=== PATIENT | male | born 1950 | race Hispanic/Latino ===

== ENCOUNTER 2019-04-19 17:30 | Emergency (ER) | payer SELFPAY ==
[2019-04-19 18:49] VITALS: BP 102/60
--- NOTE | 2019-04-19 18:51 | Event Note ---
ED Screening Note Date of service: 04/19/19 Time: 18:47 ED Screening Note: 68 y o male presents to be evaluated for hypotention pt stated he felt a little dizzy earlier today but no symptoms now. currently taking nifedipine and lisinopril PMH:renal dz, DM This initial assessment/diagnostic orders/clinical plan/treatment(s) is/are subject to change based on patients health status, clinical progression and re- assessment by fellow clinical providers in the ED. Further treatment and workup at subsequent clinical providers discretion. Patient/guardian urged not to elope from the ED as their condition may be serious if not clinically assessed and managed. Initial orders include: in triage 102/60 received 1 L in EMS labs eval
[2019-04-19 19:52] LABS: Basophils # (Auto) 0.1 K/mm3 (0.0-0.1); Basophils % (Auto) 0.8 % (0.0-1.8); Eosinophils # (Auto) 0.1 K/mm3 (0.0-0.4); Eosinophils % (Auto) 1.2 % (0.0-4.3); Hematocrit 46.1 % (35.5-45.6); Hemoglobin 15.8 gm/dl (11.8-15.2); Lymphocytes # (Auto) 3.2 K/mm3 (1.2-5.4); Mean Corpuscular HGB Conc 34 % (32-34); Mean Corpuscular Volume 98 fl (84-94); Monocytes # (Auto) 0.8 K/mm3 (0.0-0.8); Monocytes % (Auto) 7.4 % (0.0-7.3); Platelet Count 210 K/mm3 (140-440); Red Blood Count 4.71 M/mm3 (3.65-5.03); Red Cell Distribution Width 13.6 % (13.2-15.2)
[2019-04-19 20:17] LABS: Albumin 4.1 g/dL (3.9-5); Calcium 9.2 mg/dL (8.4-10.2)
== END 2019-04-19 23:00 | disposition left against medical advice (07) ==
LOC: ED 17:30
DX: R42 Dizziness and giddiness (principal); Z53.21 Procedure and treatment not carried out due to patient leaving prior to being seen by health care provider
CPT/HCPCS: 36415; 80053; 85025

== ENCOUNTER 2020-01-04 05:31 | Emergency (ER) | payer MEDICARE ==
[2020-01-04 06:19] LABS: Basophils # (Auto) 0.1 K/mm3 (0.0-0.1); Basophils % (Auto) 0.8 % (0.0-1.8); Eosinophils # (Auto) 0.2 K/mm3 (0.0-0.4); Eosinophils % (Auto) 1.3 % (0.0-4.3); Hemoglobin 16.6 gm/dl (11.8-15.2); Lymphocytes # (Auto) 1.8 K/mm3 (1.2-5.4); Lymphocytes % (Auto) 15.3 % (13.4-35.0); Mean Corpuscular HGB Conc 35 % (32-34); Mean Corpuscular Volume 97 fl (84-94); Monocytes # (Auto) 0.9 K/mm3 (0.0-0.8); Monocytes % (Auto) 7.3 % (0.0-7.3); Platelet Count 197 K/mm3 (140-440); Red Blood Count 4.93 M/mm3 (3.65-5.03); Red Cell Distribution Width 13.8 % (13.2-15.2)
[2020-01-04 06:31] LABS: Bilirubin,Urine NEG (Negative); Blood,Urine LG (Negative); Color,Urine Straw (Yellow); Urobilinogen,Urine < 2.0 mg/dL (<2.0)
[2020-01-04 06:42] LABS: Alanine Aminotransferase 8 units/L (7-56); Albumin 3.7 g/dL (3.9-5); BUN/Creatinine Ratio 12; Blood Urea Nitrogen 14 mg/dL (9-20); Calcium 9.6 mg/dL (8.4-10.2); Hemolysis Index 8
[2020-01-04] MEDS ORDERED: ONDANSETRON 4 MG/2 ML INJ IV ONE (08:19)
[2020-01-04] MEDS ORDERED: MORPHINE 4 MG/1 ML INJ IV ONE (08:19)
[2020-01-04] MEDS ORDERED: SODIUM CHLORIDE 0.9% 1000 ML 1,000 ML IV ONE (08:19)
--- NOTE | 2020-01-04 08:46 | Emergency Department Report ---
ED Abdominal Pain HPI - General Chief Complaint: Abdominal Pain Stated Complaint: LOWER ABD PAIN Time Seen by Provider: 01/04/20 07:53 Source: patient, family Mode of arrival: Wheelchair Limitations: No Limitations - History of Present Illness Initial Comments: Patient is a 69-year-old male presents emergency room with complaints of right lower quadrant abd pain and right flank pain that began at 5 AM this morning. He describes the pain as a sharp pain. He denies any nausea, vomiting, diarrhea, fever, dysuria, dark urine, odor to the urine. He states he is having normal bowel movements. He is able to tolerate p.o. intake. Has a past medical history of CKD, hypertension, nephrolithiasis, hernia. He denies any past abdominal surgical history. - Related Data Previous Rx's Medication Instructions Recorded Last Taken Type Acetaminophen [Tylenol] 650 mg PO Q8HR PRN #14 capsule 01/04/20 Unknown Rx Tamsulosin [Flomax] 0.4 mg PO QDAY #10 cap 01/04/20 Unknown Rx traMADoL [Ultram 50 MG tab] 50 mg PO Q6HR PRN #7 tablet 01/04/20 Unknown Rx Allergies Allergy/AdvReac Type Severity Reaction Status Date / Time No Known Allergies Allergy Unverified 04/19/19 18:46 ED Review of Systems ROS: Stated complaint: LOWER ABD PAIN Other details as noted in HPI Comment: All other systems reviewed and negative ED Past Medical Hx - Past Medical History Hx Hypertension: Yes Hx Diabetes: Yes Hx Renal Disease: Yes (STAGE II) Additional medical history: Kidney disease - Surgical History Past Surgical History?: No - Social History Smoking Status: Current Every Day Smoker Substance Use Type: None - Medications Home Medications: Home Medications Medication Instructions Recorded Confirmed Last Taken Type Acetaminophen [Tylenol] 650 mg PO Q8HR PRN #14 capsule 01/04/20 Unknown Rx Tamsulosin [Flomax] 0.4 mg PO QDAY #10 cap 01/04/20 Unknown Rx traMADoL [Ultram 50 MG tab] 50 mg PO Q6HR PRN #7 tablet 01/04/20 Unknown Rx ED Physical Exam - General Limitations: No Limitations General appearance: alert, in no apparent distress - Head Head exam: Present: atraumatic, normocephalic - Eye Eye exam: Present: normal appearance - ENT ENT exam: Present: mucous membranes moist - Respiratory Respiratory exam: Present: normal lung sounds bilaterally. Absent: respiratory distress, wheezes, rales, rhonchi, stridor, chest wall tenderness, accessory muscle use, decreased breath sounds, prolonged expiratory - Cardiovascular Cardiovascular Exam: Present: regular rate, normal rhythm, normal heart sounds. Absent: systolic murmur, diastolic murmur, rubs, gallop - GI/Abdominal GI/Abdominal exam: Present: soft, tenderness (RLQ), normal bowel sounds. Absent: distended, guarding, rebound, rigid - Back Exam Back exam: Absent: CVA tenderness (R), CVA tenderness (L) - Neurological Exam Neurological exam: Present: alert, oriented X3 - Psychiatric Psychiatric exam: Present: normal affect, normal mood - Skin Skin exam: Present: warm, dry, intact ED Course Vital Signs 01/04/20 01/04/20 01/04/20 05:33 07:46 09:04 Temperature 97.6 F Pulse Rate 83 63 Respiratory 18 18 16 Rate Blood Pressure 185/102 Blood Pressure 169/87 [Right] O2 Sat by Pulse 97 98 Oximetry ED Medical Decision Making - Lab Data Result diagrams: 01/04/20 05:38 01/04/20 05:38 Lab Results 01/04/20 01/04/20 01/04/20 Range/Units 05:38 05:38 Unknown WBC 12.0 H (4.5-11.0) K/mm3 RBC 4.93 (3.65-5.03) M/mm3 Hgb 16.6 H (11.8-15.2) gm/dl Hct 48.0 H (35.5-45.6) % MCV 97 H (84-94) fl MCH 34 H (28-32) pg MCHC 35 H (32-34) % RDW 13.8 (13.2-15.2) % Plt Count 197 (140-440) K/mm3 Lymph % (Auto) 15.3 (13.4-35.0) % Gilchrist % (Auto) 7.3 (0.0-7.3) % Eos % (Auto) 1.3 (0.0-4.3) % Baso % (Auto) 0.8 (0.0-1.8) % Lymph # (Auto) 1.8 (1.2-5.4) K/mm3 Gilchrist # (Auto) 0.9 H (0.0-0.8) K/mm3 Eos # (Auto) 0.2 (0.0-0.4) K/mm3 Baso # (Auto) 0.1 (0.0-0.1) K/mm3 Seg Neutrophils % 75.3 H (40.0-70.0) % Seg Neutrophils # 9.0 H (1.8-7.7) K/mm3 Sodium 135 L (137-145) mmol/L Potassium 3.9 (3.6-5.0) mmol/L Chloride 100.0 (98-107) mmol/L Carbon Dioxide 22 (22-30) mmol/L Anion Gap 17 mmol/L BUN 14 (9-20) mg/dL Creatinine 1.2 (0.8-1.3) mg/dL Estimated GFR > 60 ml/min BUN/Creatinine Ratio 12 % Glucose 215 H (75-100) mg/dL Calcium 9.6 (8.4-10.2) mg/dL Total Bilirubin 0.30 (0.1-1.2) mg/dL AST 12 (5-40) units/L ALT 8 (7-56) units/L Alkaline Phosphatase 149 H (35-129) units/L Total Protein 7.2 (6.3-8.2) g/dL Albumin 3.7 L (3.9-5) g/dL Albumin/Globulin Ratio 1.1 % Urine Color Straw (Yellow) Urine Turbidity Clear (Clear) Urine pH 7.0 (5.0-7.0) Ur Specific Hanska 1.012 (1.003-1.030) Urine Protein 100 mg/dl (Negative) mg/dL Urine Glucose (UA) 150 (Negative) mg/dL Urine Ketones Neg (Negative) mg/dL Urine Blood Lg (Negative) Urine Nitrite Neg (Negative) Urine Bilirubin Neg (Negative) Urine Urobilinogen < 2.0 (<2.0) mg/dL Ur Leukocyte Esterase Neg (Negative) Urine WBC (Auto) 5.0 (0.0-6.0) /HPF Urine RBC (Auto) 98.0 (0.0-6.0) /HPF U Epithel Cells (Auto) < 1.0 (0-13.0) /HPF Vital Signs 10/08/20 10/08/20 10/08/20 05:33 07:46 09:04 Temperature 97.6 F Pulse Rate 83 63 Respiratory 18 18 16 Rate Blood Pressure 185/102 Blood Pressure 169/87 [Right] O2 Sat by Pulse 97 98 Oximetry - Radiology Data Radiology results: report reviewed CT OF THE ABDOMEN AND PELVIS WITH INTRAVENOUS CONTRAST INDICATION / CLINICAL INFORMATION: Right lower quadrant and right flank pain. TECHNIQUE: The patient received 100 cc Omnipaque [address] scans at this location are performed using CT dose reduction for ALARA by means of automated exposure control. COMPARISON: 05/29/2011. FINDINGS: ABDOMEN: There is mild right pelvocaliectasis and ureterectasis. There is moderate perinephric soft tissue stranding, more prominent inferiorly. There are 3 nonobstructive left renal calculi, the largest of which measures approximately 5 mm in the lower pole. There are several small simple left renal cysts. The liver, spleen, gallbladder, bile ducts, pancreas, adrenal glands and bowel demonstrate no significant abnormality. There are marked atherosclerotic calcifications involving the abdominal aorta without aneurysm. No adenopathy is seen. There is mild bibasilar dependent atelectasis. There is moderate centrilobular emphysema. PELVIS: The right ureter is mildly dilated to the level of the mid SI joint. There is a 3 mm rounded calcification at that site on axial image #449 of axial series #3. The prostate gland is moderately enlarged. The distal left ureter and urinary bladder are normal. There is a small fat-containing left inguinal hernia without complication. A normal appendix is present. There are scattered left colonic diverticula without acute inflammation. No abnormal mass or fluid collection is seen. There is mild spondylosis. IMPRESSION: 1. 3 mm calculus in the right ureter at the level of the mid SI joint is causing mild hydronephrosis and moderate perinephric soft tissue stranding. 2. Nonobstructive left nephrolithiasis. 3. Moderate centrilobular emphysema. Signer Name: Dave Castro MD Signed: 01/04/2020 10:13 AM Workstation Name: [id number] Transcribed By: RT Dictated By: Dave Castro MD Electronically Authenticated By: Dave Castro MD Signed Date/Time: 01/04/20 1013 DD/ 1006 TD/TT: - Medical Decision Making Patient is a 69-year-old male presents emergency room with complaints of right lower quadrant abd pain and right flank pain that began at 5 AM this morning. He describes the pain as a sharp pain. He denies any nausea, vomiting, diarrhea, fever, dysuria, dark urine, odor to the urine. He states he is having normal bowel movements. He is able to tolerate p.o. intake. Has a past medical history of CKD, hypertension, nephrolithiasis, hernia. He denies any past abdominal surgical history. Initial vitals with elevated blood pressure which improved upon repeat. On exam patient has right lower quadrant tenderness palpation, no guarding, no rebound, no rigidity, normal bowel sounds, no peritoneal signs. Labs are stable, blood glucose elevated, will have patient follow-up with primary care doctor regarding elevation in blood sugar, discussed low carbohydrate/low sugar diet. UA shows evidence of many red blood cells. CT abdomen pelvis with contrast shows: 1. 3 mm calculus in the right ureter at the level of the mid SI joint is causing mild hydronephrosis and moderate perinephric soft tissue stranding. 2. Nonobstructive left nephrolithiasis. 3. Moderate centrilobular emphysema. Discussed all results with patient and answered questions. Patient was given his CT report. He states that he does have a urologist that he can follow-up with. Patient given prescription for tramadol, tylenol, and tamsulosin. Advised patient to please take medication as prescribed. Increase your water intake. Please do not drive or operate machinery while taking pain medication. Follow-up with a urologist. Follow-up with a primary care doctor and discuss the elevation in your blood sugar during today's visit. Eat a low carbohydrate/low sugar diet. Return to the emergency room immediately for any new or worsening symptoms. - Differential Diagnosis Nephrolithiasis, appendicitis, mass, CA, colitis, UTI, pyelonephritis Critical care attestation.: If time is entered above; I have spent that time in minutes in the direct care of this critically ill patient, excluding procedure time. ED Disposition Clinical Impression: Flank pain, Nephrolithiasis, Elevated blood sugar level Abdominal pain Qualifiers: Abdominal location: right lower quadrant Qualified Code(s): R10.31 - Right lower quadrant pain Hematuria Qualifiers: Hematuria type: unspecified type Qualified Code(s): R31.9 - Hematuria, unspecified Hydronephrosis Qualifiers: Hydronephrosis type: unspecified Qualified Code(s): N13.30 - Unspecified hydronephrosis Disposition: - TO HOME OR SELFCARE Is pt being admited?: No Does the pt Need Aspirin: No Condition: Stable Instructions: Kidney Stones (ED) Additional Instructions: please take medication as prescribed. Increase your water intake. Please do not drive or operate machinery while taking pain medication. Follow-up with a urologist. Follow-up with a primary care doctor and discuss the elevation in your blood sugar during today's visit. Eat a low carbohydrate/low sugar diet. Return to the emergency room immediately for any new or worsening symptoms. Prescriptions: Tamsulosin [Flomax] 0.4 mg PO QDAY #10 cap Acetaminophen [Tylenol] 650 mg PO Q8HR PRN #14 capsule PRN Reason: Pain, Moderate (4-6) traMADoL [Ultram 50 MG tab] 50 mg PO Q6HR PRN #7 tablet PRN Reason: Pain , Severe (7-10) Referrals: PRIMARY CARE,MD [Primary Care Provider] - 2-3 Days your, urologist [Other] - 2-3 Days Time of Disposition: 10:40 Print Language: JAPANESE
--- NOTE | 2020-01-04 10:17 | Cat Scan Report ---
CT OF THE ABDOMEN AND PELVIS WITH INTRAVENOUS CONTRAST INDICATION / CLINICAL INFORMATION: Right lower quadrant and right flank pain. TECHNIQUE: The patient received 100 cc Omnipaque [address] scans at this location are performed using CT dose reduction for ALARA by means of automated exposure control. COMPARISON: 05/29/2011. FINDINGS: ABDOMEN: There is mild right pelvocaliectasis and ureterectasis. There is moderate perinephric soft t issue stranding, more prominent inferiorly. There are 3 nonobstructive left renal calculi, the larges t of which measures approximately 5 mm in the lower pole. There are several small simple left renal c ysts. The liver, spleen, gallbladder, bile ducts, pancreas, adrenal glands and bowel demonstrate no signifi cant abnormality. There are marked atherosclerotic calcifications involving the abdominal aorta witho ut aneurysm. No adenopathy is seen. There is mild bibasilar dependent atelectasis. There is moderate centrilobular emphysema. PELVIS: The right ureter is mildly dilated to the level of the mid SI joint. There is a 3 mm rounded calcification at that site on axial image #449 of axial series #3. The prostate gland is moderately e nlarged. The distal left ureter and urinary bladder are normal. There is a small fat-containing left inguinal hernia without complication. A normal appendix is prese nt. There are scattered left colonic diverticula without acute inflammation. No abnormal mass or flui d collection is seen. There is mild spondylosis. IMPRESSION: 1. 3 mm calculus in the right ureter at the level of the mid SI joint is causing mild hydronephrosis and moderate perinephric soft tissue stranding. 2. Nonobstructive left nephrolithiasis. 3. Moderate centrilobular emphysema. Signer Name: Dave Castro MD Signed: 01/04/2020 10:13 AM Workstation Name: [id number]
[2020-01-04 11:54] VITALS: BP 138/90
== END 2020-01-04 11:53 | disposition home or self-care (01) ==
LOC: ED 05:31
DX: N13.30 Unspecified hydronephrosis (principal); N20.0 Calculus of kidney; R31.9 Hematuria, unspecified; R10.30 Lower abdominal pain, unspecified; E11.9 Type 2 diabetes mellitus without complications; I10 Essential (primary) hypertension; F17.200 Nicotine dependence, unspecified, uncomplicated; Z79.899 Other long term (current) drug therapy
CPT/HCPCS: 36415; 74177; 80053; 81001; 85025; 96361; 96374; 96375; 99284; J2270; J2405; J7030; Q9967